=== PATIENT | female | born 1990 | race Caucasian/White ===

== ENCOUNTER 2023-05-16 07:57 | Inpatient (IN) | payer OTHER ==
[2023-05-16] MEDS ORDERED: ACETAMINOPHEN 1000 MG/100 ML BAG IVPB ONE (08:46)
[2023-05-16] MEDS ORDERED: ACETAMINOPHEN INJECTION 100 ML IVPB ONE (08:50)
[2023-05-16 09:26] LABS: HEMATOCRIT 45.7 % (32.4-45.2); HEMOGLOBIN 15.8 GM/dL (10.7-15.3); INR 1.18 (0.83-1.09); MCH 30.4 pg (25.7-33.7); MCHC 34.7 g/dl (32.0-36.0); MEAN CELL VOLUME 87.5 fl (80-96); MEAN PLT VOLUME 9.7 fl (7.5-11.1); PLATELET COUNT 207 10^3/uL (134-434); PROTHROMBIN TIME (PATIENT) 13.7 SEC (9.7-13.0); RBC 5.22 M/mm3 (3.60-5.2); RDW 13.9 % (11.6-15.6); WHITE BLOOD COUNT 20.3 K/mm3 (4.0-10.0)
[2023-05-16 09:28] LABS: ACTIVATED PTT 32.6 SECONDS (25.2-36.5)
[2023-05-16] MEDS ORDERED: LACTATED RINGERS SOLUTION 1000 ML INFUS.BAG IV ONE ×2 (09:37→12:54)
[2023-05-16 10:14] LABS: ANISOCYTOSIS 1+; ERYTHROCYTE SEDIMENTATION RATE 13 mm/hr (0-20); MACROCYTOSIS 0; OVALOCYTE 1+; TEAR DROP CELLS 1+
[2023-05-16 10:55] LABS: POTASSIUM 4.3 mmol/L (3.5-5.1)
[2023-05-16 10:56] LABS: ALBUMIN 3.4 g/dl (3.4-5.0); BLOOD UREA NITROGEN 8.9 mg/dL (7-18); CALCIUM 8.9 mg/dL (8.5-10.1)
[2023-05-16 11:00] LABS: CREATININE 0.9 mg/dL (0.55-1.3)
[2023-05-16 11:01] LABS: BILIRUBIN,TOTAL 1.3 mg/dL (0.2-1); TOT PROT 7.8 g/dl (6.4-8.2)
[2023-05-16] MEDS ORDERED: ALBUTEROL SO4 0.083% IH SOL 2.5 MG/3 ML VIAL.NEB. NEB SCH (12:30)
[2023-05-16] MEDS ORDERED: PIPERACILLIN/TAZOB 4.5 GM 4.5 GM in DEXTROSE 5%-WATER 100 ML IVPB ONE (12:31)
[2023-05-16] MEDS ORDERED: PIPERACILLIN/TAZOB 4.5 GM 4.5 GM/100 ML BAG IVPB ONE (12:39)
[2023-05-16] MEDS ORDERED: morphine SULFATE 4 MG/ML VIAL IVPUSH ONE (12:46)
[2023-05-16] MEDS ORDERED: KETOROLAC TROMETHAMINE 15 MG/ML VIAL IVPUSH PRN (13:22)
[2023-05-16] MEDS ORDERED: VANCOMYCIN/WATER FOR INJ (PEG) 1,000 MG/200 ML BAG IVPB SCH ×2 (13:45→15:30)
[2023-05-16] MEDS ORDERED: VANCOMYCIN 1 GRAM (PRE-DOCKED) 1,000 MG/250 ML BAG IVPB ONE (15:13)
[2023-05-16] MEDS: LACTATED RINGERS SOLUTION 1,000 ML IV SCH (15:21)
[2023-05-16] MEDS ORDERED: PIPERACILLIN/TAZOB 3.375 GM 3.375 GM in DEXTROSE 5%-WATER - 50 ML IVPB SCH (18:00)
[2023-05-16] MEDS ORDERED: VANCOMYCIN 1,000 MG in DEXTROSE 5%-WATER - 250 ML IVPB SCH (18:00)
[2023-05-16 18:47] VITALS: BMI 19.7
[2023-05-16] MEDS: ACETAMINOPHEN 325 MG TABLET (FP) PO PRN (21:17)
[2023-05-16] MEDS: PIPERACILLIN/TAZOB 4.5 GM 4.5 GM in DEXTROSE 5%-WATER 100 ML IVPB SCH (21:18)
[2023-05-17] MEDS: CLINDAMYCIN 600MG PREMIX IVPB 600 MG/50 ML BAG IVPB SCH ×2 (01:57→10:53)
[2023-05-17] MEDS: PIPERACILLIN/TAZOB 4.5 GM 4.5 GM in DEXTROSE 5%-WATER 100 ML IVPB SCH ×3 (02:17→19:00)
[2023-05-17] MEDS ORDERED: PIPERACILLIN/TAZOBACTAM 4.5 GM VIAL IVPB ONE (02:18)
[2023-05-17] MEDS: LACTATED RINGERS SOLUTION 1,000 ML IV SCH (06:09)
[2023-05-17] MEDS: ACETAMINOPHEN 325 MG TABLET (FP) PO PRN (06:09)
[2023-05-17 08:30] LABS: BASO % 0.1 % (0-2.0); HEMATOCRIT 39.9 % (32.4-45.2); HEMOGLOBIN 13.6 GM/dL (10.7-15.3); LYMPH % 3.7 % (8-40); MCH 29.9 pg (25.7-33.7); MCHC 34.2 g/dl (32.0-36.0); MEAN CELL VOLUME 87.5 fl (80-96); MEAN PLT VOLUME 10.3 fl (7.5-11.1); MONO % 8.8 % (3.8-10.2); NEUT % 87.4 % (42.8-82.8); PLATELET COUNT 188 10^3/uL (134-434); RBC 4.56 M/mm3 (3.60-5.2); RDW 13.2 % (11.6-15.6); WHITE BLOOD COUNT 19.1 K/mm3 (4.0-10.0)
[2023-05-17 08:41] LABS: INR 1.43 (0.83-1.09); PROTHROMBIN TIME (PATIENT) 16.5 SEC (9.7-13.0)
[2023-05-17 08:44] LABS: ACTIVATED PTT 30.4 SECONDS (25.2-36.5)
[2023-05-17 08:55] LABS: POTASSIUM 3.8 mmol/L (3.5-5.1)
[2023-05-17 08:57] LABS: BLOOD UREA NITROGEN 5.5 mg/dL (7-18); CALCIUM 8.4 mg/dL (8.5-10.1)
[2023-05-17 09:00] LABS: CREATININE 0.8 mg/dL (0.55-1.3); PHOSPHOROUS 3.6 mg/dL (2.5-4.9)
[2023-05-17 09:01] LABS: BILIRUBIN,TOTAL 1.4 mg/dL (0.2-1); TOT PROT 6.5 g/dl (6.4-8.2)
[2023-05-17 09:04] LABS: ALBUMIN 2.6 g/dl (3.4-5.0)
[2023-05-17] MEDS ORDERED: ENOXAPARIN NA (PORCINE) 40 MG/0.4 ML DISP.SYRIN SQ SCH (10:00)
[2023-05-17] MEDS ORDERED: ACETAMINOPHEN 1000 MG/100 ML BAG IVPB PRN (11:39)
[2023-05-17] MEDS ORDERED: ceFAZolin SODIUM 1 GM VIAL IVPB ONE ×3 (14:27→15:15)
[2023-05-17] MEDS ORDERED: MIDAZOLAM HCL 2 MG/2 ML SINGLE DOSE VIAL ONE (14:42)
[2023-05-17] MEDS ORDERED: PROPOFOL 20 ML ONE (14:42)
[2023-05-17] MEDS ORDERED: FENTANYL CITRATE/PF 50 MCG/ML VIAL ONE ×2 (14:42→15:18)
[2023-05-17] MEDS ORDERED: LIDOCAINE HCL/PF 2% SDV 5ML VIAL ONE (14:42)
[2023-05-17] MEDS ORDERED: DEXAMETHASONE SOD PHOSPHATE 4 MG/1 ML VIAL ONE (15:11)
[2023-05-17] MEDS ORDERED: ceFAZolin SODIUM 1 GM VIAL ONE (15:11)
[2023-05-17] MEDS ORDERED: BUPIVACAINE HCL/PF 0.5% (5MG/ML) 10 ML VIAL ONE (15:26)
[2023-05-17] MEDS ORDERED: ONDANSETRON 4 MG/2 ML VIAL ONE (15:28)
[2023-05-17] MEDS ORDERED: KETOROLAC TROMETHAMINE 30 MG/1 ML VIAL ONE (15:28)
[2023-05-17] MEDS ORDERED: BUPIVACAINE HCL/PF 0.5% (5MG/ML) 10 ML VIAL IJ ONE (15:36)
[2023-05-17] MEDS ORDERED: ONDANSETRON 4 MG/2 ML VIAL IVPUSH PRN ×2 (16:02→16:42)
[2023-05-17] MEDS ORDERED: PROMETHAZINE HCL 25 MG/1 ML VIAL IVPB PRN (16:02)
[2023-05-17] MEDS ORDERED: ACETAMINOPHEN 1000 MG/100 ML BAG IVPB ONE ×2 (16:03→16:42)
[2023-05-17] MEDS ORDERED: LACTATED RINGERS SOLUTION 1,000 ML IV SCH ×2 (16:15→16:42)
[2023-05-17] MEDS ORDERED: oxyCODONE HCL 5 MG TABLET PO PRN (16:42)
[2023-05-17] MEDS: ACETAMINOPHEN 1000 MG/100 ML BAG IVPB PRN (17:49)
[2023-05-17] MEDS: DOCUSATE SODIUM 100 MG CAPSULE (FP) PO SCH (22:17)
[2023-05-17] MEDS: SENNOSIDES 8.6MG TABLET (FP) PO SCH (22:17)
[2023-05-17] MEDS: POLYETHYLENE GLYCOL (HEALTHYLAX) 3350 17 GM PACKET PO SCH (22:17)
[2023-05-18] MEDS: PIPERACILLIN/TAZOB 4.5 GM 4.5 GM in DEXTROSE 5%-WATER 100 ML IVPB SCH ×3 (01:30→18:11)
[2023-05-18 07:44] LABS: HEMATOCRIT 39.6 % (32.4-45.2); HEMOGLOBIN 12.8 GM/dL (10.7-15.3); MCH 29.2 pg (25.7-33.7); MCHC 32.3 g/dl (32.0-36.0); MEAN CELL VOLUME 90.3 fl (80-96); PLATELET COUNT 213 10^3/uL (134-434); RBC 4.38 M/mm3 (3.60-5.2); RDW 13.2 % (11.6-15.6); WHITE BLOOD COUNT 25.1 K/mm3 (4.0-10.0)
[2023-05-18 08:01] LABS: POTASSIUM 4.4 mmol/L (3.5-5.1)
[2023-05-18 08:03] LABS: CALCIUM 8.9 mg/dL (8.5-10.1)
[2023-05-18 08:04] LABS: ALBUMIN 2.6 g/dl (3.4-5.0); BLOOD UREA NITROGEN 12.5 mg/dL (7-18); MAGNESIUM 2.2 mg/dL (1.8-2.4)
[2023-05-18 08:07] LABS: CREATININE 0.7 mg/dL (0.55-1.3)
[2023-05-18 08:08] LABS: BILIRUBIN,TOTAL 0.6 mg/dL (0.2-1); TOT PROT 6.5 g/dl (6.4-8.2)
[2023-05-18] MEDS: ACETAMINOPHEN 1000 MG/100 ML BAG IVPB PRN (08:27)
[2023-05-18 08:34] LABS: ANISOCYTOSIS 1+; MACROCYTOSIS 0
[2023-05-18] MEDS: oxyCODONE HCL 5 MG TABLET PO PRN ×2 (09:12→21:49)
[2023-05-18] MEDS ORDERED: HYDROmorphone HCL 2 MG TABLET PO ONE (09:53)
[2023-05-18] MEDS ORDERED: KETOROLAC TROMETHAMINE 15 MG/ML VIAL IVPUSH ONE (10:32)
[2023-05-18] MEDS: POLYETHYLENE GLYCOL (HEALTHYLAX) 3350 17 GM PACKET PO SCH ×2 (13:01→21:48)
[2023-05-18] MEDS: DOCUSATE SODIUM 100 MG CAPSULE (FP) PO SCH ×2 (13:01→21:49)
[2023-05-18] MEDS: LACTATED RINGERS SOLUTION 1,000 ML IV SCH (16:11)
[2023-05-18] MEDS: SENNOSIDES 8.6MG TABLET (FP) PO SCH (21:49)
[2023-05-19] MEDS: ACETAMINOPHEN 1000 MG/100 ML BAG IVPB PRN (00:44)
[2023-05-19] MEDS: PIPERACILLIN/TAZOB 4.5 GM 4.5 GM in DEXTROSE 5%-WATER 100 ML IVPB SCH ×3 (01:03→17:24)
[2023-05-19 09:32] LABS: BASO % 0.3 % (0-2.0); EOS % 0.6 % (0-4.5); HEMOGLOBIN 12.3 GM/dL (10.7-15.3); LYMPH % 15.2 % (8-40); MCH 29.5 pg (25.7-33.7); MCHC 32.4 g/dl (32.0-36.0); MEAN CELL VOLUME 90.9 fl (80-96); MONO % 8.4 % (3.8-10.2); NEUT % 75.5 % (42.8-82.8); PLATELET COUNT 210 10^3/uL (134-434); RBC 4.19 M/mm3 (3.60-5.2); RDW 13.4 % (11.6-15.6); WHITE BLOOD COUNT 10.2 K/mm3 (4.0-10.0)
[2023-05-19 09:58] LABS: POTASSIUM 3.8 mmol/L (3.5-5.1)
[2023-05-19] MEDS ORDERED: ENOXAPARIN NA (PORCINE) 40 MG/0.4 ML DISP.SYRIN SQ SCH (10:00)
[2023-05-19 10:03] LABS: BLOOD UREA NITROGEN 15.7 mg/dL (7-18)
[2023-05-19 10:04] LABS: ALBUMIN 2.5 g/dl (3.4-5.0)
[2023-05-19 10:06] LABS: CALCIUM 8.4 mg/dL (8.5-10.1); CREATININE 0.7 mg/dL (0.55-1.3)
[2023-05-19 10:08] LABS: BILIRUBIN,TOTAL 0.8 mg/dL (0.2-1); MAGNESIUM 2.3 mg/dL (1.8-2.4); TOT PROT 6.2 g/dl (6.4-8.2)
[2023-05-19] MEDS: POLYETHYLENE GLYCOL (HEALTHYLAX) 3350 17 GM PACKET PO SCH ×3 (10:08→22:10)
[2023-05-19] MEDS: DOCUSATE SODIUM 100 MG CAPSULE (FP) PO SCH ×2 (10:08→22:03)
[2023-05-19] MEDS: SENNOSIDES 8.6MG TABLET (FP) PO SCH (22:03)
[2023-05-20] MEDS: PIPERACILLIN/TAZOB 4.5 GM 4.5 GM in DEXTROSE 5%-WATER 100 ML IVPB SCH ×2 (02:53→09:41)
[2023-05-20 07:39] LABS: BASO % 0.5 % (0-2.0); HEMATOCRIT 45.8 % (32.4-45.2); LYMPH % 20.3 % (8-40); MCH 29.6 pg (25.7-33.7); MCHC 32.7 g/dl (32.0-36.0); MEAN CELL VOLUME 90.7 fl (80-96); MEAN PLT VOLUME 9.4 fl (7.5-11.1); MONO % 7.5 % (3.8-10.2); NEUT % 70.7 % (42.8-82.8); PLATELET COUNT 288 10^3/uL (134-434); RBC 5.05 M/mm3 (3.60-5.2); RDW 13.3 % (11.6-15.6); WHITE BLOOD COUNT 8.9 K/mm3 (4.0-10.0)
[2023-05-20 07:54] LABS: POTASSIUM 4.5 mmol/L (3.5-5.1)
[2023-05-20 07:58] LABS: CALCIUM 9.6 mg/dL (8.5-10.1)
[2023-05-20 07:59] LABS: BLOOD UREA NITROGEN 10.6 mg/dL (7-18); MAGNESIUM 2.6 mg/dL (1.8-2.4)
[2023-05-20 08:02] LABS: CREATININE 0.8 mg/dL (0.55-1.3)
[2023-05-20 08:03] LABS: BILIRUBIN,TOTAL 0.9 mg/dL (0.2-1)
[2023-05-20 08:04] LABS: TOT PROT 8.2 g/dl (6.4-8.2)
[2023-05-20 08:09] LABS: ALBUMIN 3.5 g/dl (3.4-5.0)
[2023-05-20] MEDS: DOCUSATE SODIUM 100 MG CAPSULE (FP) PO SCH (09:41)
[2023-05-20] MEDS: POLYETHYLENE GLYCOL (HEALTHYLAX) 3350 17 GM PACKET PO SCH (09:41)
[2023-05-20 09:47] VITALS: BP 108/71; PULSE 76; RESP 18; TEMP 98.8
== END 2023-05-20 14:26 | disposition home or self-care (01) | DRG 223 ==
LOC: JER 07:57 → JERBED 12:54 → OBSVTOIN 13:22 → J7W 15:38
PROVIDERS: ADMIT Internal Medicine; ATTEND Nurse Practitioner Family
PROC: 0D9P00Z Drainage of Rectum with Drainage Device, Open Approach (ICD-10-PCS; principal; 2023-05-17 13:45)
DX: K61.39 Other ischiorectal abscess (principal); K63.0 Abscess of intestine; E43 Unspecified severe protein-calorie malnutrition; G47.00 Insomnia, unspecified; L98.8 Other specified disorders of the skin and subcutaneous tissue; Z68.1 Body mass index [BMI] 19.9 or less, adult; L27.1 Localized skin eruption due to drugs and medicaments taken internally; T36.8X5A Adverse effect of other systemic antibiotics, initial encounter; D72.829 Elevated white blood cell count, unspecified; K64.4 Residual hemorrhoidal skin tags
CPT/HCPCS: 36415; 72193-TC; 80053; 83036; 83735; 84100; 84703; 85025; 85610; 85651; 85730; 86140; 86850; 86900; 86901; 87040; 87070; 87076; 87186; 87205; 93005; 93010; 94760; 99285-25; G0378; Q9967

== ENCOUNTER 2023-06-11 11:57 | Emergency (ER) | payer OTHER ==
[2023-06-11 12:09] VITALS: BP 106/73; PULSE 87; TEMP 98.9; BMI 19.7
[2023-06-11 15:24] LABS: BASO % 0.3 % (0-2.0); EOS % 0.2 % (0-4.5); HEMATOCRIT 39.8 % (32.4-45.2); HEMOGLOBIN 13.2 GM/dL (10.7-15.3); LYMPH % 20.6 % (8-40); MCH 29.5 pg (25.7-33.7); MCHC 33.2 g/dl (32.0-36.0); MEAN CELL VOLUME 88.9 fl (80-96); MEAN PLT VOLUME 10.6 fl (7.5-11.1); NEUT % 71.9 % (42.8-82.8); PLATELET COUNT 192 10^3/uL (134-434); RBC 4.47 M/mm3 (3.60-5.2); RDW 14.1 % (11.6-15.6); WHITE BLOOD COUNT 9.7 K/mm3 (4.0-10.0)
[2023-06-11 15:46] LABS: ALBUMIN 3.4 g/dl (3.4-5.0); BLOOD UREA NITROGEN 10.5 mg/dL (7-18); CALCIUM 9.2 mg/dL (8.5-10.1)
[2023-06-11 15:51] LABS: BILIRUBIN,TOTAL 1.8 mg/dL (0.2-1); CREATININE 0.8 mg/dL (0.55-1.3); TOT PROT 7.7 g/dl (6.4-8.2)
== END 2023-06-11 17:48 | disposition home or self-care (01) ==
LOC: JERFT 11:57
DX: G89.18 Other acute postprocedural pain (principal); L02.31 Cutaneous abscess of buttock; Z98.890 Other specified postprocedural states
CPT/HCPCS: 36415; 80053; 84703; 85025; 99283-25